=== PATIENT | male | born 1960 | race Caucasian/White ===

== ENCOUNTER → 2023-11-08 07:28 | Outpatient (REF) | payer MEDICARE, OTHER, SELFPAY | LOC: RAD 07:28 | PROVIDERS: ATTENDING PHYSICIAN Family Medicine | DX: Z87.891 Personal history of nicotine dependence (principal) | CPT/HCPCS: 76770 ==

== ENCOUNTER 2024-07-10 06:20 | Emergency (ER) | payer MEDICARE, OTHER, SELFPAY ==
[2024-07-10 06:22] VITALS: BP 175/83
--- NOTE | 2024-07-10 07:22 | ED.GENMED ---
History of Present Illness
General
Chief Complaint: Flank Pain
Source: patient
Time Seen by Provider: 07/10/24 06:56
History of Present Illness
History of Present Illness:
63-year-old male presents to the emergent complaint of right flank pain. Patient began having discomfort 5 days ago. It has been constant. Nothing seems to make it better or worse. It does seem to be more noticeable at night. Patient denies any
associated fever, chills, nausea or vomiting. He he denies any hematuria. Denies any significant change in his urinary frequency. No weakness numbness or tingling. Patient does not recall any particular activity that caused the pain to begin.
Phy Exam
Physical Exam
Physical Exam:
General: Awake, Alert, Oriented X3. No acute distress.
Vitals: unremarkable
Head: Atraumatic
Eyes: Pupils equal, EOMI
Throat: Airway intact, no exudates
Neck: Trachea midline
Lungs: Clear and equal b/l
Heart: Regular rate, 2/6 systolic ejection murmurs
Abd: Soft, Nontender, No pulsatile mass
Back: Mild right CVA tenderness to percussion
Neuro: C nonfocal
Skin: Warm, dry, no rash
Extremities: pulses equal b/l, no edema
Course
Orders/Labs/Results
Orders:
Orders
07/10/24 07:14
Complete Blood Count/With Diff Urgent
Comprehensive Metabolic Panel Urgent
Urinalysis Reflex To Culture Urgent
Date Specimen was Collected: 07/10/24
Time Specimen was Collected: 06:48
07/10/24 07:22
CT Abd/pel Without Iv Or Oral Urgent
Comment:
Reason For Exam: r flank pain
Ketorolac [Toradol] 15 mg IV NOW STA
Abnormal Lab Results
07/10/24
07:14
WBC 4.3 L 10^3/uL
(4.8-10.8)
RBC 4.15 L 10^6/uL
(4.70-6.10)
Hgb 12.8 L g/dL
(13.0-18.0)
Hct 37.3 L %
(39.0-52.0)
Absolute Lymphs (auto) 1.1 L 10^3/uL
(1.2-3.4)
Monocytes % 13.5 H %
(1.7-9.3)
Carbon Dioxide 32 H mmol/L
(22-30)
Glucose 129 H mg/dl
(70-99)
07/10/24 07:14
07/10/24 07:14
Vital Signs
Initial and Last Documented VS:
Initial Vital Signs
Temp Pulse Resp BP Pulse Ox
97.9 F 60 16 175/83 98
07/10/24 06:22 07/10/24 06:22 07/10/24 06:22 07/10/24 06:22 07/10/24 06:22
Last Documented Vital Signs
Temp Pulse Resp BP Pulse Ox
97.9 F 88 18 140/80 98
07/10/24 06:22 07/10/24 08:46 07/10/24 08:46 07/10/24 08:46 07/10/24 08:46
MDM/Problems Addressed
Differential Diagnosis Includes:
Kidney stone, musculoskeletal back pain, urinary tract infection
MDM/Problems Addressed:
Patient presents with left flank/back pain. Labs show normal white count, normal renal function. Urinalysis was negative for blood or any other abnormalities. CT of the abdomen and pelvis without contrast was obtained which does not show evidence
of a kidney stone. There is some bladder wall thickening and prostatic hypertrophy. Will start the patient on Flomax for possible BPH. Follow-up with urology. Patient's discomfort may be related to BPH with abnormal voiding or more likely is
musculoskeletal in nature.
*Radiology
Radiology exam reviewed: radiology read reviewed
*Pulse Oximetry
Patient hypoxic: no
*Critical Care Note
Total Time (30-74mins, 75-104mins- exclusive of procedures): Not Applicable
ED Attending Note
-
Portions of this chart may have been created with voice recognition software.� Occasional wrong word or��sound alike� substitutions may have occurred due to the inherent limitations of voice recognition software.
Discharge Plan
Departure
Patient Disposition: Home (Routine Discharge)
Date of Disposition: 07/10/24
Time of Disposition: 08:25
Patient with high blood pressure during this ER visit?: Yes
Condition: Good
Discharge Problem:
Back pain, BPH (benign prostatic hyperplasia)
Instructions: Benign prostatic hyperplasia (enlarged prostate), Back Pain
Prescriptions:
New
tamsulosin [Flomax] 0.4 mg capsule
0.4 mg PO DAILY Qty: 30 0RF
No Action
atorvastatin 20 mg Tablet
20 mg DAILY
sertraline 100 mg Tablet
100 mg PO DAILY
amlodipine [Norvasc] 5 mg Tablet
5 mg PO DAILY
irbesartan 300 mg Tablet
300 mg PO DAILY
Referrals:
MOLINA MONET [Other]
Obi Tubbs MD [Active] -
Activity Restrictions/Additional Instructions:
Your CT scan does not show a kidney stone. It does show an enlarged prostate and bladder wall thickening. I have sent a prescription for a medication to help you urinate more fully. It is very important you follow up with a urologist, Dr. Tubbs.
Interventions
Interventions:
*Risk Screen - Suicide Last Done: 07/10/24 06:22
*General Assessment Last Done: 07/10/24 06:22
*Neglect/Abuse Screening Last Done: 07/10/24 06:22
*ED COVID-19 Vaccine History Last Done: 07/10/24 07:16
*Nursing Disposition Last Done: 07/10/24 08:46
NC-Afanll-Ilocnufgqx Assessment Last Done: 07/10/24 07:15
ED-Male Genitourinary Assessment Last Done: 07/10/24 07:15
Discharge Date and Time
Discharge Date/Time: 07/10/24 08:48
Print Language: GEORGIAN
[2024-07-10 07:31] LABS: Urine Albumin Negative (Neg - Trace); Urine Bilirubin Negative (Negative); Urine Character Clear (Clear); Urine Color Yellow; Urine Glucose Negative (Negative); Urine Ketone Negative (Negative); Urine Leukocyte Negative (Negative); Urine Nitrite Negative (Negative); Urine Occult Blood Negative (Negative); Urine Specific Gravity 1.005 (<1.030); Urine Urobilinogen Negative (Neg - 1+)
[2024-07-10] MEDS: TORADOL 15 MG IV (07:31)
[2024-07-10 07:36] LABS: % Basophils 0.9 % (0-2); % Immature Granulocytes 0.2 % (0-0.5); % Lymphocytes 26.6 % (20.5-51.1); % Monocytes 13.5 % (1.7-9.3); % Neutrophils 55.8 % (42.2-75.2); Absolute Eosinophils 0.1 10^3/uL (0-0.7); Absolute Lymphocytes 1.1 10^3/uL (1.2-3.4); Absolute Monocytes 0.6 10^3/uL (0.1-0.6); Absolute Neutrophils 2.4 10^3/uL (1.4-6.5); Hematocrit 37.3 % (39.0-52.0); Hemoglobin 12.8 g/dL (13.0-18.0); Mean Corp Hgb Conc. 34.3 g/dL (33.0-37.0); Mean Corpuscular Hgb 30.8 pg (27.0-31.0); Mean Corpuscular Volume 89.9 fL (80.0-94.0); Mean Platelet Volume 10.2 fL (7.4-10.4); Nucleated Red Blood Cells % 0 % (-); Platelet Count 135 10^3/uL (130-400); Red Blood Cell Count 4.15 10^6/uL (4.70-6.10); White Blood Cell Count 4.3 10^3/uL (4.8-10.8)
[2024-07-10 07:38] LABS: ALT (SGPT) 36 U/L (0-50); AST (SGOT) 30 U/L (17-59); Albumin 4.6 g/dl (3.5-5.0); Alkaline Phosphatase 63 U/L (38-126); Blood Urea Nitrogen 14 mg/dl (9-20); Calcium 9.5 mg/dl (8.4-10.2); Carbon Dioxide 32 mmol/L (22-30); Chloride 98 mmol/L (98-107); Glucose 129 mg/dl (70-99); Potassium 3.8 mmol/L (3.5-5.1); Sodium 139 mmol/L (135-145); Total Bilirubin 0.6 mg/dl (0.2-1.3); Total Protein 7.3 g/dl (6.3-8.2); eGFR > 60.00
[2024-07-10 08:46] VITALS: BP 140/80
== END 2024-07-10 08:48 | disposition home or self-care (01) ==
LOC: EMR 06:20
PROVIDERS: EMERGENCY PHYSICIAN Emergency Medicine
DX: M54.9 Dorsalgia, unspecified (principal); N40.0 Benign prostatic hyperplasia without lower urinary tract symptoms
CPT/HCPCS: 99284; 96374; 74176; 80053; 81003; 85025